=== PATIENT | female | born 1950 | race Caucasian/White ===

== ENCOUNTER 2017-05-01 22:34 | Emergency (ER) | payer MEDICARE, BC ==
[~2017-05-01] VITALS: Ht 167.6 cm; Wt 68.0 kg
[2017-05-01 22:36] VITALS: Ht 167.6 cm; Wt 68.0 kg
[2017-05-01] MEDS ORDERED: morphine 4 MG/ML VIAL IV STA (22:52)
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
[2017-05-02] MEDS ORDERED: NAPR-685 PO (00:28)
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
[2017-05-02 00:59] VITALS: BP 144/64; PULSE 69; RESP 18; TEMP 98.6
== END 2017-05-02 01:20 | disposition home or self-care (01) ==
LOC: E/R 22:34
DX: S09.90XA Unspecified injury of head, initial encounter (principal); S16.1XXA Strain of muscle, fascia and tendon at neck level, initial encounter; R51 Headache; V49.40XA Driver injured in collision with unspecified motor vehicles in traffic accident, initial encounter
CPT/HCPCS: 70450; 72125; 96374; 99285; J2270